=== PATIENT | female | born 1960 | race Caucasian/White ===

== ENCOUNTER 2017-02-08 11:08 | Emergency (ER) | payer OTHER ==
--- NOTE | 2017-02-24 15:27 | ER ---
ADMIT: 02/08/2017 RM/LOC: ER [facility] MR#: [id number] [address] [id number] GIANFRANCO MCCRARY [address] [place] [address] Emergency Room Report SEX: F AGE: 56 : 1960 DATE: 02/08/2017 ADDENDUM: This is a 56-year-old white female with a history of colon cancer. She has been cancer-free for 5 years. However, she started to feel like she had transient, as she described it, paresthesia in her arms and her right thigh. CT scan was negative. Exam essentially negative. However, her potassium was borderline at 3.3. I encouraged her on foods high in potassium to continue to take. She should follow up with Dr. Hathaway as needed. Obviously if something else changes, she should be seen sooner, but reassured her that she should be fine. CONDITION ON DISCHARGE: Good. Duke Gallo MD/ dena JOB #: [id number] CC: Dkue Gallo MD, Attending Physician UNKNOWN, Family Physician
== END 2017-02-08 14:45 | disposition home or self-care (01) ==
LOC: ER 11:08
DX: E87.6 Hypokalemia (principal); Z85.038 Personal history of other malignant neoplasm of large intestine; Z90.49 Acquired absence of other specified parts of digestive tract; Z88.5 Allergy status to narcotic agent